=== PATIENT | male | born 1950 | race Caucasian/White ===

== ENCOUNTER 2019-03-13 12:33 | Inpatient (IN) ==
--- NOTE | 2019-03-13 14:11 | PROVIDER DOCUMENTATION ---
HPI-General Adult - General Chief Complaint: B/P Problems Stated Complaint: SOB,DIZZY,HIGH BP Time Seen by Provider: 03/13/19 12:58 Source: patient Allergies/Adverse Reactions: Patient Allergies Allergy/AdvReac Type Severity Reaction Status Date / Time No Known Allergies Allergy Verified 03/13/19 18:48 - History of Present Illness -Gen Adult Nature of Presenting Problems: Patient is a 69 yowm who c/o SOB with exertion since last week and elevated BP a nd dizziness x 2 days. Denies chest pain, extremity weakness/numbness, syncope, or any other symptoms. He is neurologically intact and non-toxic in appearance. Review of Systems - Adult - REVIEW OF SYSTEMS - ADULT Constitutional: reports: no symptoms reported Eyes: reports: no symptoms reported Ears, Nose, Mouth & Throat: reports: no symptoms reported Cardiovascular: reports: no symptoms reported. denies: chest pain, edema, irreg ular heart rate, palpitations, syncope Respiratory: reports: see HPI, shortness of breath Gastrointestinal: reports: no symptoms reported Genitourinary: reports: no symptoms reported Musculoskeletal: reports: no symptoms reported Integumentary: reports: no symptoms reported Neurological: reports: see HPI, dizziness/vertigo. denies: ataxia, headache/migraines, loss of balance, numbness, paresthesia, seizure, slurred speech, syncope, tremors Psychiatric: reports: no symptoms reported Endocrine: reports: no symptoms reported Hematologic/Lymphatic: reports: no symptoms reported Allergic/Immunologic: reports: no symptoms reported All Other Systems: Reviewed and Negative Past History - Adult - PAST MEDICAL HISTORY-ADULT Review of Records: reports: Nursing Assessment Review, Medications Reviewed, Social history reviewed & non-contributory. Major Childhood Illnesses: reports: denies history Cardiovascular: reports: HTN, hyperlipidemia Respiratory: reports: denies history Gastrointestinal: reports: denies history Obstetrical/Gynecological: reports: denies history Genitourinary: reports: denies history Musculoskeletal: reports: denies history Neurological: reports: denies history Psychiatric: reports: denies history Endocrine/Immune: reports: denies history Other Conditions: reports: denies history - PRIOR SURGERIES/PROCEDURES Surgical/Procedure History: reports: reviewed, not pertinent - FAMILY HISTORY Family History: other (negative for CAD/CVA/[place]) - SOCIAL HISTORY Smoking: non-smoker Physical Exam-General - PHYSICAL EXAM-ADULT Initial Vital Signs Reviewed: Yes - CONSTITUTIONAL General Appearance: alert, no apparent distress. negative: lethargic, slow to respond - EYES Eyes: PERRL/EOMI, pink conjunctivae - HEAD, EARS, NOSE, MOUTH & THROAT HENMT: normocephalic/atraumatic, moist mucous membranes - NECK Neck: full range of motion, supple, normal inspection - RESPIRATORY Respiratory: chest non-tender, lungs clear, normal breath sounds, no pleuratic chest pain, no respiratory distress, no accessory muscle use. negative: respiratory distress - CARDIOVASCULAR Cardiovascular: normal peripheral pulses, regular rate, rhythm, no gallop, no JVD, no murmur, other (1+ pitting edema bilateral lower extremities.) - GASTROINTESTINAL (ABDOMEN) Abdominal Exam: normal bowel sounds, non tender, soft - MUSCULOSKELETAL Back Exam: normal inspection Extremity: normal range of motion, non-tender, normal gait, normal inspection Peripheral Pulses: radial (R): 3+, radial (L): 3+ - SKIN Integumentary: normal color, warm/dry. negative: cyanosis, diaphoresis, jaundice, mottled, pallor - NEUROLOGIC Neurologic: gas adjuster II-XII nml as tested, grossly normal, no motor/sensory deficits. negative: aphasia, facial droop, focal weakness, motor weakness, sensory deficit - PSYCHIATRIC Psych/Mental Status: normal mood/affect, normal thought content, normal thought process, oriented x 3 Progress - PLAN OF CARE/RESULTS Progress/Plan/Lab Results: Vital Signs - 8 hr 03/13/19 12:37 Temperature 98.2 F Pulse Rate 80 Respiratory Rate 18 Blood Pressure 159/70 O2 Sat by Pulse Oximetry 98 Orders Category Date Time Status Cardiac Monitoring DIRECTED Care 03/13/19 13:52 Active ED: Orthostatic Vital Signs (E DIRECTED Care 03/13/19 13:52 Active Saline Loc NOW Care 03/13/19 13:52 Active CHEST-2 VIEWS [RAD] Stat Exams 03/13/19 13:[address] HEAD W/O CONTRAST [CT] Stat Exams 03/13/19 13:52 Ordered CBC WITH DIFF [HEME] Stat Lab 03/13/19 13:51 Ordered COMPREHENSIVE METABOLIC PANEL [CHEM] Stat Lab 03/13/19 13:52 Uncollected PRO B-NATRIURETIC PEPTIDE Stat Lab 03/13/19 13:52 Uncollected PROTIME WITH INR [COAG] Stat Lab 03/13/19 13:52 Ordered PTT [COAG] Stat Lab 03/13/19 13:52 Ordered TROPONIN T Stat Lab 03/13/19 13:52 Ordered UA NIMS W/REFLEX CULT [URINALYSIS] Stat Lab 03/13/19 13:52 Uncollected Result Diagrams: 03/13/19 14:38 03/13/19 14:38 - REASSESSMENT Reassessment #1 Time Reassessed: 16:02 Status: other (Lab unable to calculate gfr due to pt race not documented per track repair laborer. Will order CT thorax due to abnormal cxr when gfr results. Attempted to contact patient's pcp Aminah Barber with no sucess.) Reassessment #2 Time Reassessed: 16:10 Status: other (Admitting [facility] paged.) Reassessment #3 Time Reassessed: 17:02 Status: other (Another lab inquiry made for GFR so CT thorax can be ordered, track repair laborer states they are working on it now.) Reassessment #4 Time Reassessed: 18:40 Status: other (CT back, Dr. Murphy to call [facility] to discuss, then dispo. Pt still hypertensive, no other changes since previous assessment. Will treat BP.) Reassessment #5 Time Reassessed: 19:00 Status: other (Dr. Murphy spoke with Dr. Langley who states to contact steward/stewardess tourist class [facility] for admission. Dr. Murphy has paged [facility] and will speak with them regarding admission. Dr. Murphy saw and evaluated pt and is in agreement with admission plan.) - XRAY 1 XRAY Study: Chest (IMPRESSION: There is likely a lingular segment infiltrate. Follow-up recommended. Electronically signed by Roland Pelaez 03/13/2019 2:12 PM) - CT/MRI 1 CT Study: Head (IMPRESSION: Negative exam. This exam was performed using automated exposure control, adjustment of mA or kV according to patient size, and/or use of iterative reconstruction technique Electronically signed by Chato Caballero 03/13/2019 2:37 PM) 2 CT Study: Thorax (IMPRESSION: 1.Mild cardiomegaly with trace pleural fluid 2.Small cyst in the lower left hemithorax anteriorly This exam was performed using automated exposure control, adjustment of mA or kV according to patient size, and/or use of iterative reconstruction technique. Electronically signed by Roland Pelaez 03/13/2019 6:26 PM 03/13/19 [id number]) - CONSULTS/PCP/HOSPITALIST Notification #1 *Consult/PCP/Hospitalist*: SATINDER Abebe GUEST SERVICES ASSOCIATE Time Discussed: 16:50 Reason/Comments: admission- SOB, elevated BNP, dizziness, HTN Consult Disposition: other (Mis, [facility] recommends outpatient echo and does not recommend admission at this time. Discussed case with Dr. Murphy) #2 Consult: Dr Elizabeth Time Discussed: 19:00 Consult Disposition: Will see in ED, Admit Departure - Departure Date of Disposition Decision: 03/13/19 Time of Disposition Decision: 19:14 DIAGNOSIS: CHF (congestive heart failure), Renal insufficiency, Dizziness Disposition: ADMITTED INPATIENT 09 Certified Medical Emergency: Emergent Condition: Fair Referrals and Follow-Ups: Shilpa Barber MD [Primary Care Provider] - - Critical Care Note This patient required my direct & personal management of CC.: No Attestation - Physician/ LOBO Attestation Patient care was provided by Advanced Practice Provider:: Yes Advanced Practice Provider:: Rox Hernandez Advanced Practice Provider documentation review:: The Mid-level provider documentation, treatment plan and medical decision making was reviewed by the physician who agrees with all treatment and medical decision making by the P. The physician spent face to face time with patient:: Yes (Dr. Murphy) Advanced Practice Provider documentation review:: Supervising physician onsite and consulted in the evaluation and care of this patient. The physician did have a face to face encounter with the patient.
--- NOTE | 2019-03-13 14:14 | Diag Imaging Result Doc PS360 ---
EXAM: CHEST-2 VIEWS HISTORY: dizziness, SOB TECHNIQUE: Chest two views COMPARISON: None. FINDINGS: The lungs are well expanded. The heart is not enlarged. The vessels are not distended. There are increased interstitial markings in the lingular segment of the left upper lobe. No pleural effusions. Lower thoracic compression fracture. Bridging ossifications in the thoracic spine. IMPRESSION: There is likely a lingular segment infiltrate. Follow-up recommended. Electronically signed by Roland Pelaez 03/13/2019 2:12 PM
--- NOTE | 2019-03-13 14:40 | Diag Imaging Result Doc PS360 ---
CT HEAD W/O CONTRAST - 03/13/2019 INDICATION: dizziness COMPARISON: None FINDINGS: The ventricles and sulci are normal in size and contour. No intracranial mass or hemorrhage. The skull is intact. The sinuses mastoids and middle ears are clear. IMPRESSION: Negative exam. This exam was performed using automated exposure control, adjustment of mA or kV according to patient size, and/or use of iterative reconstruction technique Electronically signed by Chato Caballero 03/13/2019 2:37 PM
[2019-03-13] MEDS ORDERED: ROCEPHIN 1 GM in NS 50 ML IV ONE (14:51)
[2019-03-13 15:03] LABS: BASO# 0.01 X1000 (0.0-0.2); BASO% 0.2 % (0.0-0.8); EOS# 0.03 X1000 (0.0-0.7); EOS% 0.6 % (0.0-10.0); HEMATOCRIT 33.2 % (42.0-52.0); HEMOGLOBIN 11.5 g/dL (14.0-18.0); LYMPH# 1.42 X1000 (1.2-3.4); LYMPH% 26.1 % (20.5-51.1); MCH 30.3 PG (27-31); MCHC 34.6 g/dL (33-37); MCV 87.6 FL (81-99); MONO# 0.62 X1000 (0.11-0.59); MONO% 11.4 % (1.7-9.3); MPV 10.6 FL (7.4-10.4); NEUT# 3.36 X1000 (1.4-6.5); NEUT% 61.7 % (42.2-75.2); PLT 264 X1000 (130-400); RBC 3.79 XMIL (4.7-6.1); RDW 13.1 % (11.5-14.5); WBC 5.44 X1000 (4.8-10.8)
--- NOTE | 2019-03-13 15:10 | EKG Report ---
Test Performed on : 03/13/2019 12:37:39 PM Test Reason : ED. No order in [place] Blood Pressure : / mmHG Vent. Rate : 086 BPM Atrial Rate : 086 BPM P-R Int : 202 ms QRS Dur : 092 ms QT Int : 386 ms P-R-T Axes : 035 -16 003 degrees QTc Int : 461 ms Normal sinus rhythm. Normal ECG No previous ECGs available Unconfirmed Result
[2019-03-13 15:16] LABS: ALB/GLOB RATIO 2.2; ALBUMIN 4.7 g/dL (3.5-5.0); CALCIUM 9.5 mg/dL (8.8-10.2); CREATININE 1.4 mg/dL (0.7-1.2); POTASSIUM 5.1 mmol/L (3.5-5.1); TOTAL BILIRUBIN 0.68 mg/dL (0.20-1.00); TOTAL PROTEIN 6.8 g/dL (6.3-8.3)
[2019-03-13] MEDS ORDERED: APRESOLINE IV ONE ×2 (15:23→15:51)
[2019-03-13 15:30] LABS: INR 1.29; PROTIME 16.3 Seconds (11.0-16.0)
[2019-03-13 15:31] LABS: PTT 30.9 Seconds (22.3-41.8)
[2019-03-13] MEDS ORDERED: LASIX IV ONE (15:51)
[2019-03-13 15:58] LABS: URINE SOURCE CLEAN CATCH
[2019-03-13 16:06] LABS: BILIRUBIN URINE NEGATIVE (NEGATIVE); BLOOD URINE NEGATIVE (NEGATIVE); COLOR STRAW; GLUCOSE URINE NEGATIVE (NEGATIVE); KETONE URINE NEGATIVE (NEGATIVE); LEUKOCYTES URINE NEGATIVE (NEGATIVE); NITRITE URINE NEGATIVE (NEGATIVE); PH URINE 6.5; PROTEIN URINE NEGATIVE (NEGATIVE); SP GRAVITY URINE 1.005; TURBIDITY URINE CLEAR (CLEAR); UROBILINOGEN URINE NORMAL (NORMAL)
[2019-03-13 16:07] LABS: UR EPITHELIAL CELLS <10 /HPF (<10); URINE BACTERIA NEGATIVE /HPF; URINE RBC <10 /HPF (<10); URINE WBC <10 /HPF (<10)
--- NOTE | 2019-03-13 17:50 | ED EKG INTERP ---
This chart was entered by Bethany Miller Scribe, acting as scribe for Rojelio Murphy MD. EKG Interpretation - EKG Time of EKG reading by physician:: 12:37 EKG Read and Signed by:: Rojelio Murphy EKG Interpretation (*Must complete 3 of following elements*): Normal Rate: 86 Rhythm: normal sinus QRS: normal ST Wave: normal Attestation - Physician/ LOBO Attestation Patient care was provided by Advanced Practice Provider:: No The physician spent face to face time with patient:: Yes Advanced Practice Provider documentation review:: Supervising physician onsite and consulted in the evaluation and care of this patient. The physician did have a face to face encounter with the patient. This chart was documented by the indicated scribe, (Bethany Miller Scribe) and accurately reflects the services I performed and decisions made by me, Rojelio Murphy MD, as attested by the provider's signature.
--- NOTE | 2019-03-13 18:29 | Diag Imaging Result Doc PS360 ---
EXAM: CT THORAX W/CONTRAST HISTORY: abnormal cxr- VIJI infiltrate? TECHNIQUE: CT chest without contrast COMPARISON: None. FINDINGS: Trace pleural fluid bilaterally. The heart is mildly enlarged. No aortic aneurysm or dissection. No large central pulmonary emboli. No enlarged lymph nodes. Calcified left hilar lymph nodes with granuloma. 16 mm cyst along the diaphragmatic surface adjacent to the left ventricle and lingular segment of the upper lobe. No consolidation. No bronchiectasis. IMPRESSION: 1.Mild cardiomegaly with trace pleural fluid 2.Small cyst in the lower left hemithorax anteriorly This exam was performed using automated exposure control, adjustment of mA or kV according to patient size, and/or use of iterative reconstruction technique. Electronically signed by Roland Pelaez 03/13/2019 6:26 PM
[2019-03-13] MEDS ORDERED: LABETALOL IV ONE (18:39)
[2019-03-13] MEDS ORDERED: TYLENOL PO PRN (19:40)
[2019-03-13] MEDS ORDERED: ZOFRAN IV PRN (19:40)
[2019-03-13] MEDS ORDERED: DUONEB (A & A) INH PRN (20:09)
[2019-03-13] MEDS ORDERED: APRESOLINE IV PRN (20:12)
[2019-03-13] MEDS: LOVENOX SUBQ SCH (20:33)
[2019-03-13] MEDS: LASIX IV SCH (21:28)
--- NOTE | 2019-03-13 23:59 | HISTORY AND PHYSICAL ---
PRIMARY CARE DOCTOR: Shilpa Barber MD. CHIEF COMPLAINT: Hypertension and shortness of breath. HISTORY OF PRESENT ILLNESS: Mr. Bernal is a 69-year-old male who presents to the ER today with a past medical history of hypertension and hyperlipidemia. The patient states that on Wednesday of this past week he started feeling very dizzy and very short of breath, he was also having some weakness. He states that this has persistently gotten worse and worse since Wednesday, so he decided to come to the ER today. The patient states that he is unable to walk more than 100 feet without having to sit down because he is so short of breath. He denies any chest pain, any nausea or vomiting. He is positive for shortness of breath with exertion. The patient states that he has also noticed for the past month that when he was out doing yard work and mowing the lawn he has not produced any perspiration even in the very high heat. The patient is sitting up on the ER stretcher. He is awake, alert and oriented. He is able answer all my questions appropriately. He does not seem to be in any distress at this time. O2 saturation is 98% on room air. Laboratory findings in the ER did show him to have a positive proBNP at 15,389. Chest CT in the ER showed mild cardiomegaly with trace pleural fluid bilaterally, it did not show any pulmonary emboli, it did not show any consolidation. Blood pressure in the ER is elevated, at one point it was 195/132. He was given labetalol and hydralazine IV. Blood pressure now is 176/97. The patient was also given a dose of Lasix 40 mg IV in the ER. The patient was getting up to use the bathroom while I was in the room and states he has been voiding more frequently. There is notable edema noted to the bilateral lower extremities. Lungs sounds are clear. The patient does have notable PVCs about every 6 beats on the monitor. He is in sinus rhythm in the 80s. PAST MEDICAL HISTORY: Hypertension, hyperlipidemia, a left eye droop from detached retina. PAST SURGICAL HISTORY: Detached retina with surgery to the left eye, cataracts. FAMILY HISTORY: No significant family history noted. Parents are both still living. SOCIAL HISTORY: The patient lives in [place] with his . 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 The patient denies any smoking or illicit drug abuse. The patient does state that he drinks beer 2-3 beers every day. ALLERGIES: No known drug allergies. MEDICATIONS: Fenofibrate 145 mg p.o. at bedtime, metoprolol 100 mg p.o. daily, simvastatin 40 mg p.o. at bedtime, Prilosec 40 mg p.o. daily. LABS AND DIAGNOSTICS: White blood cell count 5.44, hemoglobin 11.5, hematocrit 33.2, platelet count 264,000. PT is 16.3, INR is 1.29, PTT is 30.9, sodium is 132, potassium is 5.1, chloride is 94, BUN is 13, creatinine is 1.4. GFR is 54, glucose is 111, total bilirubin is 0.68, AST is 27, ALT is 21, alkaline phosphatase is 62. Troponin is less than 0.01. ProBNP is 15,389. Urinalysis is negative. EKG shows normal sinus rhythm with a rate 86. Chest x-ray shows increased interstitial markings in the lingular segment of the left upper lobe, which could likely be a infiltrate and they recommended to do a CT scan. CT scan showed trace pleural fluid bilaterally with enlargement of the heart mildly, it showed no central pulmonary emboli, it showed calcified left hilar lymph nodes with a granuloma, it showed a 16-mm cyst along the diaphragmatic surface adjacent to the left ventricle and lingular segment of the upper lobe. No consolidation. Head CT was negative. REVIEW OF SYSTEMS: A 12-point review of systems has been obtained. All are negative except what is stated above in the HPI. PHYSICAL EXAMINATION: VITAL SIGNS: Temperature 98.2 degrees, pulse rate 84, respiratory rate 20, blood pressure 176/97, O2 saturation 98% on room air, weight 150 pounds, height 5 feet 8 inches. GENERAL: This is a 69-year-old male. He is lying in the ER stretcher. He is well nourished and well developed. He is in no acute distress at the present time. HEENT: Atraumatic and normocephalic. The right pupil is reactive to light and accommodation. The left pupil is nonreactive. There is eyelid droop noted from surgery for a detached retina. Extraocular movements are intact. Sclerae are anicteric. Mucous membranes are moist. NECK: Supple with no lymphadenopathy. Trachea is midline. No JVD. No thyromegaly. No bruits. CARDIOVASCULAR: Regular rate and rhythm. No gallops or rubs. The patient does have a murmur noted. He does have PVCs noted on the monitor, about every 6th beat. The patient is sinus rhythm in the 80s. RESPIRATORY: Lung sounds were clear with equal chest excursion. Respirations are nonlabored with no accessory muscle usage. ABDOMEN: Soft, nontender and nondistended. Bowel sounds are present x4. No abdominal bruits. NEUROLOGIC: Cranial nerves II-XII are intact. The patient is awake, alert and oriented. He is able to follow all commands. MUSCULOSKELETAL: Full distal strength noted. No abnormality of gait. No deformities. EXTREMITIES: No clubbing, no cyanosis. DP and PT pulses are present and palpable. There is 2+ pitting edema noted to the bilateral ankle regions. SKIN: Warm, dry and intact. No rashes, bruises or diaphoresis noted. ASSESSMENT AND PLAN: 1. Congestive heart failure with exacerbation. We are going to admit this patient to the medical floor. We are going to place him on a environmental intern. We are going to monitor vital signs every 4 hours. We are going to give him Lasix 40 mg IV b.i.d. We are going to trend his CK and troponins and do a electrocardiogram and echocardiogram in the morning. I have restarted all his home medications. 2. Hypertension. The patient is having significant hypertension in the emergency room. He was given labetalol and hydralazine interavenous. We are going to continue his home hypertension medications of metoprolol. I have also ordered him hydralazine as needed for a systolic greater than 160. 3. Hyperlipidemia. The patient is on home cholesterol medication. I have reordered that. I am going to check a lipid profile in the morning. 4. Daily alcohol intake. I have ordered a folate level in the morning. We are going to provide cessation on this and monitor closely this patient for delirium tremens. I have placed him on folic acid and thymine daily p.o. 5. GI prophylaxis. I have ordered this patient Prilosec daily. He is on Prilosec at home. 6. Deep venous thrombus prophylaxis. I have placed this patient on Lovenox 40 mg subcutaneous every 24 hours. We are going to admit this patient to the medical floor. We are going to start him on Lasix 40 mg intravenous every 12 hours. We are going to order an echocardiogram in the morning. We are going to follow his CK and troponins. I have ordered labs in the morning for him including a CBC, BMP, Mag, B12, folate, and a thyroid stimulating hormone. I have reordered a chest x-ray for him for in the morning, started him on a healthy heart diet. All other further recommendations pending hospital course. Dictated by CANDELARIO Alvarez for Erlin Elizabeth MD I have performed a face to face diagnostic evaluation. Labs/ xray- reviewed. Exam- chest -bibasilar rales, CV-regular. A/P- CHF- Exacerbation- Admit, gentle diuresis, Echo, cardiology consult. Dr. Elizabeth cc: MD Shilpa Hughes
[2019-03-14] MEDS: TRICOR PO SCH ×2 (01:10→20:42)
[2019-03-14] MEDS: ZOCOR PO SCH ×2 (01:10→20:42)
[2019-03-14 04:11] LABS: BASO# 0.02 X1000 (0.0-0.2); BASO% 0.3 % (0.0-0.8); EOS# 0.05 X1000 (0.0-0.7); EOS% 0.7 % (0.0-10.0); HEMATOCRIT 35.2 % (42.0-52.0); HEMOGLOBIN 12.4 g/dL (14.0-18.0); LYMPH# 1.17 X1000 (1.2-3.4); LYMPH% 17.5 % (20.5-51.1); MCH 30.5 PG (27-31); MCHC 35.2 g/dL (33-37); MCV 86.5 FL (81-99); MONO# 0.73 X1000 (0.11-0.59); MONO% 10.9 % (1.7-9.3); MPV 10.5 FL (7.4-10.4); NEUT# 4.73 X1000 (1.4-6.5); NEUT% 70.6 % (42.2-75.2); PLT 288 X1000 (130-400); RBC 4.07 XMIL (4.7-6.1); RDW 13.2 % (11.5-14.5)
[2019-03-14 04:23] LABS: AGAP 15; BUN 15 mg/dL (8-22); CALCIUM 9.9 mg/dL (8.8-10.2); CHLORIDE 91 mmol/L (98-107); CHOLESTEROL 133 mg/dL (0-200); COSMO 270; CREATININE 1.6 mg/dL (0.7-1.2); ESTIMATED GFR 43; GLUCOSE 86 mg/dL (70-104); HDL 63 mg/dL (35-55); LDL 57 mg/dL; MAGNESIUM 1.7 mg/dL (1.5-2.7); PHOSPHORUS 4.1 mg/dL (2.7-4.5); POTASSIUM 3.9 mmol/L (3.5-5.1); SODIUM 135 mmol/L (136-145); TCO2 29 mmol/L (25-35); TRIGLYCERIDES 66 mg/dL (39-160); VLDL 13 mg/dL
[2019-03-14 05:06] LABS: TSH 3.56 uIUmL (0.27-4.20)
--- NOTE | 2019-03-14 07:13 | EKG Report ---
Test Performed on : 03/14/2019 07:08:48 AM Test Reason : CHF Blood Pressure : / mmHG Vent. Rate : 081 BPM Atrial Rate : 081 BPM P-R Int : 200 ms QRS Dur : 100 ms QT Int : 428 ms P-R-T Axes : 041 -23 -28 degrees QTc Int : 497 ms Normal sinus rhythm. Moderate voltage criteria for LVH, may be normal variant Nonspecific ST and T wave abnormality Prolonged QT Abnormal ECG When compared with ECG of 13-MAR-2019 12:37, (Unconfirmed) T wave inversion now evident in Anterior leads Confirmed by Sadi Ruiz MD ([id number]) on 03/16/2019 7:19:33 AM
--- NOTE | 2019-03-14 07:31 | Diag Imaging Result Doc PS360 ---
EXAM: CHEST-PORTABLE INDICATION: CHF TECHNIQUE: One view COMPARISON: 03/13/2019 FINDINGS: The vague opacity at the anterior left lung base seen on the previous study is again identified. An interval CT showed that it represented a pericardial cyst. No new consolidations are identified. Cardiac silhouette is stable. IMPRESSION: Stable chest. Electronically signed by Ankur Aquino 03/14/2019 7:28 AM
[2019-03-14] MEDS: TOPROL XL PO SCH (08:12)
[2019-03-14] MEDS: LASIX IV SCH ×2 (08:12→20:42)
[2019-03-14] MEDS: PRILOSEC PO SCH (08:13)
[2019-03-14] MEDS: VITAMIN B-1 PO SCH (08:13)
[2019-03-14] MEDS: FOLIC ACID PO SCH (08:13)
--- NOTE | 2019-03-14 14:59 | ECHO REPORT ---
ORDER DATE: 03/14/2019 ECHOCARDIOGRAPHIC MEASUREMENTS: 1. Interventricular septum 1.1. 2. Left ventricular posterior wall 1.1. 3. Diastolic diameter 4.5. 4. Left atrium 4.5. 5. Aorta 3.2. SUMMARY OF FINDINGS: 1. Aortic valve leaflets were trileaflet, mildly sclerosed, opening normally. 2. Pulmonic valve was normal. 3. Tricuspid valve was normal. 4. Mitral valve was normal. There is mitral annular calcification. There is left atrial enlargement. There is mild mitral regurgitation. 5. Mild tricuspid regurgitation. Peak velocity across the tricuspid valve less than 2 m/sec. 6. Peak velocity across the aortic valve less than 2 m/sec. There is no aortic stenosis or regurgitation. Normal left ventricular cavity size. Estimated ejection fraction of 50% to 55%. There is anteroseptal hypokinesis. 7. There is no pericardial effusion or obvious intracardiac mass or thrombus seen. cc: Aryan Luna MD
--- NOTE | 2019-03-14 17:18 | PROGRESS NOTE ---
DATE: 03/14/2019 SUBJECTIVE: Came in with hypertension, shortness of breath. A patient of Dr. Shilpa Barber. He is a 69-year-old male who presented to the emergency room with a past medical history of hypertension and hyperlipidemia. States that a couple days before, he started feeling dizzy, very short of breath, also having some weakness. He persistently got worse and came to the emergency room. ADMISSION DIAGNOSES: 1. Congestive heart failure exacerbation. 2. Hypertension. 3. Hyperlipidemia. 4. Daily alcohol intake. OBJECTIVE/PHYSICAL EXAMINATION: General: He is feeling better, breathing a little better. Vital Signs: Remains afebrile, temperature 97.8 degrees, pulse 80, respirations 15, blood pressure 151/82. HEENT: Pupils are equal and round. Lungs: Clear in all lung chris. Cardiovascular: Regular rate without murmur or S3. Input/Output: Urine output was 1100 mL. DIAGNOSTIC DATA: Echocardiogram with Doppler was done this morning. Normal valves. No aortic stenosis. Ejection fraction 50% to 55%. Normal left ventricular cavity size and no pericardial disease appreciated. Pulmonic, tricuspid, aortic valves unremarkable. Chest x-ray from this morning, stable chest. CT of the head done yesterday, negative exam. ASSESSMENT AND PLAN: 1. Congestive heart failure with exacerbation. We are giving him some Lasix IV twice a day. Checking his troponin and CK, I do not see any evidence of elevation or any evidence of cardiac ischemia. 2. Hypertension. Blood pressures appear to be well controlled. 3. Daily alcohol intake. Aware. I have checked labs. His folate level is 25 and vitamin B12 150, so I do think he would benefit for some IM B12. Will give him 1000 mg daily for 3 days. Thyroid appears to be normal. 4. Creatinine 1.4. It was 1.6 when he came in this morning. Chest x-ray shows vague opacity, anterior left base. 5. Interval CT represented a pericardial cyst. No new consolidations. Cardiac silhouette unremarkable. REVIEW OF ORDERS: I do not see anything to change. He is on Tricor 145 mg at bedtime, Zocor 40 mg at bedtime, folic acid 1 mg daily Prilosec 40 mg a day. Getting Lasix 40 mg IV b.i.d. he just got 1 dose of ceftriaxone in the emergency room. cc: Justin Cleveland MD
[2019-03-14] MEDS: LOVENOX SUBQ SCH (20:42)
[2019-03-15] MEDS: TOPROL XL PO SCH (08:33)
[2019-03-15] MEDS: FOLIC ACID PO SCH (08:33)
[2019-03-15] MEDS: PRILOSEC PO SCH (08:33)
[2019-03-15] MEDS: VITAMIN B-1 PO SCH (08:33)
[2019-03-15] MEDS: LASIX IV SCH (08:33)
[2019-03-15 11:53] VITALS: BP 141/60
--- NOTE | 2019-03-15 14:14 | DISCHARGE SUMMARY ---
ADMISSION DATE: 03/13/2019 DISCHARGE DATE: 03/15/2019 HISTORY OF PRESENT ILLNESS AND HOSPITAL COURSE: This is a 59-year-old patient of Dr. Shilpa Barber who presented with hypertension, shortness of breath. Came to the emergency room on 03/13/2019. Past medical history hypertension, hyperlipidemia. On Wednesday, in the past week, started feeling dizzy, very short of breath. Also had some weakness. Stated he had persistently gotten worse. Decided to come to the emergency room. States he is unable to walk more than 100 feet without having to sit down because he is short of breath. Denied any chest pain, any nausea or vomiting. Positive for shortness of breath on exertion. The patient states that he has noticed for the past month that when he was doing yard work and mowing the lawn, he noticed more perspiration, seemed to have a harder time. The patient was sitting on the stretcher in the emergency room. He is alert and oriented, able to answer questions, was in no distress at that time. O2 saturation was 98% on room air. Lab findings in the ER showed his proBNP was 15,369. Chest CT in the ER, mild cardiomegaly, trace pleural fluid. Did not have any pulmonary emboli. It did not show any consolidation. Blood pressure 195/132. He was given labetalol IV and hydralazine IV. That brought his blood pressure down and gave him some Lasix. ADMISSION DIAGNOSES: 1. Congestive heart failure exacerbation. They diuresed him and adjusted his blood pressure afterload. 2. Hypertension. He had accelerated hypertension on presentation. 3. Hyperlipidemia. 4. Daily alcohol use. They did check a folate and B12 level. He showed steady improvement. LABORATORY DATA: CT of his head on 03/13/2019 was negative. Chest x-ray on 03/13/2019 showed likely lingular infiltrate. Chest CT on 03/13/2019, mild cardiomegaly, a small cyst in the left hemothorax anteriorly which appeared to be stable. Echocardiogram on 03/14/2019 showed ejection fraction of 50-55%. Normal left ventricular cavity size. No valvular dysfunction. Casey he could be discharged on 03/15/2019. DISCHARGE MEDICATIONS: He will go home on Tricor 145 mg at bedtime, folic acid 1 mg daily, Lasix which he will take p.o. just once a day at 40 mg daily, Toprol-XL 100 mg a day, Prilosec 40 mg a day, Zocor 40 mg a day, vitamin B1 100 mg daily. cc: Justin Cleveland MD
== END 2019-03-15 15:40 | disposition home or self-care (01) | DRG 293 ==
LOC: ED 12:33 → SUATTDRO 12:34 → 1N 12:34
PROVIDERS: ATTEND Emergency Medicine
CPT/HCPCS: 70450; 71010; 71020; 71045; 71046; 71260; 80048; 80053; 80061; 81001; 82550; 82607; 82746; 83735; 83880; 84100; 84443; 84484; 85025; 85610; 85730; 87040; 93005; 93306; 96365; 96372; 96375; 96376; 99284; A9270; J0360; J0696; J1650; J1940; Q9967